=== PATIENT | female | born 1990 | race Caucasian/White ===

== ENCOUNTER 2017-10-27 21:06 | Emergency (ER) | payer OTHER ==
[~2017-10-27] VITALS: Ht 167.6 cm; Wt 79.3 kg
[2017-10-27 21:09] VITALS: TEMP 36.2; Ht 167.6 cm; Wt 79.3 kg
[2017-10-27] MEDS ORDERED: CYCLOBENZAPRINE HCL 10 MG TAB PO STA (21:45)
[2017-10-27] MEDS ORDERED: OXYCODONE/ACETAMINOPHEN 5-325 TAB PO STA (21:45)
[2017-10-27] MEDS ORDERED: IBUPROFEN 200 MG TAB PO STA (21:45)
[2017-10-27] MEDS ORDERED: PRED50TA PO (22:34)
[2017-10-27] MEDS ORDERED: OXYC-57 PO (22:34)
[2017-10-27] MEDS ORDERED: CYCL10TA6 PO (22:34)
--- NOTE | 2017-10-27 22:37 | EMERGENCY ROOM VISIT NOTE ---
History First contact with patient: 21:28 Chief Complaint: BACK INJURY Stated Complaint: EXTREME BACK PAIN History of Present Illness The patient is a 27 year old female who presents to the Emergency Room with complaints of a back injury that occurred yesterday at the gym. The patient was doing bicep curls when she all of a sudden felt a pull in her lower back. She has had pain since. She denies any numbness or tingling. No weakness in her lower extremities. She does have a slight pain in the left lateral thigh. She denies any previous back injury. She has tried ibuprofen with minimal relief of the pain. No saddle paresthesias. No urinary or bowel incontinence. Review of Systems 6 system review negative. Please see pertinent positives in the history of present illness section. Past Medical/Surgical History Otherwise healthy Social History Smoking Status: Never Smoker Occupation Status: employed Current/Historical Medications No Active Prescriptions or Reported Meds Physical Exam Vital Signs Date Time Temp Pulse Resp B/P (MAP) Pulse Ox O2 Delivery O2 Flow Rate FiO2 10/27/17 21:09 36.2 85 18 123/82 96 Room Air Physical Exam VITALS: Vitals are noted on the nurse's note and reviewed by myself. Vital signs stable. GENERAL: 27-year-old female, in moderate discomfort, SKIN: The skin was without rashes, erythema, edema, or bruising. T HEAD: Normocephalic atraumatic. NECK: Cervical spine is nontender. HEART: Regular rate and rhythm without murmurs gallops or rubs. LUNGS: Clear to auscultation bilaterally without wheezes, rales or rhonchi. No accessory muscle use. MUSCULOSKELETAL: No tenderness over the lumbar spinous processes. No tenderness over the SI joint bilaterally. No tenderness over the paraspinous muscles throughout bilaterally. Negative straight leg test. Sensation in lower extremities is intact and equal bilaterally. Strength 5/5 throughout. NEURO: Patient was alert and oriented to person place and time. Normal sensation to touch. No focal neurological deficits. Medical Decision & Procedures Medications Administered Medications (Trade) Dose Ordered Sig/Meagan Route Start Time Stop Time Status Last Admin Dose Admin Ibuprofen (Advil Tab) 800 mg NOW STAT PO 10/27/17 21:45 10/27/17 21:46 DC 10/27/17 21:58 800 MG Oxycodone/ Acetaminophen (Percocet 5-325mg Tab) 1 tab NOW STAT PO 10/27/17 21:45 10/27/17 21:46 DC 10/27/17 21:58 1 TAB Cyclobenzaprine HCl (Flexeril Tab) 10 mg NOW STAT PO 10/27/17 21:45 10/27/17 21:46 DC 10/27/17 21:58 10 MG Prednisone (PredniSONE TAB) 60 mg NOW STAT PO 10/27/17 21:45 10/27/17 21:46 DC 10/27/17 21:59 60 MG ED Course The patient was seen and examined She was medicated with Percocet, Motrin, Flexeril and prednisone. Upon reevaluation, she was more comfortable. We discussed discharge instructions. 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 On exam, she was uncomfortable. She did not however have any tenderness over the lumbar spinous processes. Given that this was not a traumatic injury and she was neurologically intact, I did not find imaging necessary. She had good pain relief in the emergency department. She will be sent home with a course of narcotics, steroids and muscle relaxants. She was comfortable with this plan. She will follow-up with her primary care physician for recheck at the end of the week, and agrees to return with any worsening symptoms. This chart was completed in part utilizing [id number] Speech Voice Recognition software. Attempts were made to minimize the grammatical errors, random word insertions, pronoun errors and incomplete sentences. Any formal questions or concerns about the content, text or information contained within the body of this dictation should be directly addressed to the provider for clarification. Impression Primary Impression: Strain of lumbar region Departure Information Dispostion Home / Self-Care Condition GOOD Prescriptions No Active Prescriptions or Reported Meds Referrals Apolinar Ambrocio DO (PCP) Patient Instructions My [facility] Additional Instructions You were evaluated in the emergency department for back pain. This is likely due to a severe muscular strain. Please take the entire course of steroids Ibuprofen 600 mg every 6 hours Percocet 1-2 tabs every 4 hours for severe pain. Do not drink alcohol or drive while taking this medication. This may be taken with ibuprofen, but avoid Tylenol. This medication may cause constipation. Please take a stool softener such as Colace Flexeril every 8 hours as needed for muscle spasms. Please do not drink alcohol or drive or taking this medication. Ice over the lower back over the next 48 hours. Lying on a hard surface may help with the pain. No strenuous activity until your back is feeling better Please follow-up with your primary care physician next 2-3 days for recheck Please do not hesitate to return to the emergency department with a new, worsening or concerning symptoms; especially, weakness in your legs, problems holding your urine or bowels, numbness or tingling in your groin Work Instructions Return To Work: 1 day
[2017-10-27 22:48] VITALS: BP 108/74; PULSE 62; O2SAT 98
== END 2017-10-27 22:55 | disposition home or self-care (01) ==
LOC: C.EDB 21:07 → C.EDD 22:55
DX: S39.012A Strain of muscle, fascia and tendon of lower back, initial encounter (principal); X50.9XXA Other and unspecified overexertion or strenuous movements or postures, initial encounter; Y92.89 Other specified places as the place of occurrence of the external cause; Y93.B9 Activity, other involving muscle strengthening exercises